=== PATIENT | female | born 1930 | race Caucasian/White ===

== ENCOUNTER 2018-10-09 11:25 | Inpatient (IN) | payer OTHER, BC ==
[~2018-10-09] VITALS: Ht 157.5 cm; Wt 45.8 kg
[~2018-10-09 11:25] MED LIST: CEFUROXIME250 MG PO; PROLIA60 MG/1 ML SUBQ
[2018-10-10] MEDS ORDERED: LIPITOR40 MG PO (01:51)
[2018-10-10] MEDS ORDERED: NORVASC5 M1 PO (02:18)
[2018-10-10] MEDS ORDERED: LISINOPRIL40 MG PO (02:19)
[2018-10-10] MEDS ORDERED: ASPIR 8181 MG PO (02:20)
[2018-10-10] MEDS ORDERED: ARMOUR THYROID60 M1 PO (02:25)
[2018-10-10] MEDS ORDERED: VITAMINC500 PO (02:26)
[2018-10-10] MEDS ORDERED: CALCIUM 600 +1 EAC1 PO (02:27)
[2018-10-10] MEDS ORDERED: UNICOMPLEX M TA1 TA1 PO (02:29)
[2018-10-10] MEDS ORDERED: ARAVA20 MG PO (02:30)
[2018-10-10] MEDS ORDERED: MIRALAX17 GM PO (02:31)
[2018-10-10] MEDS ORDERED: INFLECTRA100 MG IV (02:40)
--- NOTE | 2018-10-10 04:50 | NUR ---
ARRIVED FROM [facility]IA [facility] IN [facility] VIA TRANSPORT X2 STAND BY ASSIST AMBULATING WITH WALKER @ 0005 ON 10/10/18. CONTACTED DPOA SON LILLIAN FERNANDES BY PHONE FOR AUTHORIZATION TO TREAT, PRIOR EXPRESS CONSENT FORM, RIGHTS AND RESPONSIBILITIES FORM, COUNTERSIGNED BY Dulce LEO RN AND José BRADLEY RN. ALERT, ORIENTED TO SELF ONLY ONLY. FAIRLY PLEASANT AFFECT. WAS AGITATED AND COMBATITIVE AT ER, SCREAMED OUT. DIET IS REGULAR. THIN LIQUIDS. ATE DINNER AT THE ER AND FED SELF. CONTINENT BUT WEARS A BRIEF AND HAS OCCASIONAL ACCIDENTS. NO IV LINES. SKIN ASSESSMENT: L EAR HAS A SCAB ON THE POSTERIOR SIDE, L FOREARM HAS A BRUISE, L KNEE SCABS, L KNEE MEDIA BRUISE, R UPPER LEG HAS SCRATCHES, THICK DISCOLORED TOENAILS. REPORTS BM LAST NIGHT. HAS A SMEAR OF YELLOW BROWN STOOL IN THE CLEFT OF HER BUTTOCKS. WEARS MEDIUM BRIEFS. HRRR S1 S2 NOTED. ABD NORMOACTIVE X 4 Q. R MASTECTOMY NOTED, LIMB ALERT RIGHT ARM. SLEPT A FEW HOURS THEN GETS OUT OF BED STRAIGHTENING UP THE SHEETS AND BLANKETS REPEATEDLY. @ 05:15 RESPONDED TO SOUND IN ROOM, PT WAS ON KNEES WITH HER WALKER IN FRONT OF HER. DENIES PAIN, PONCE [id number]. NO INJURIES OBSERVED OR REPORTED. VS 168/98 114 20 96.
[2018-10-10 05:14] VITALS: BP 150/82
[2018-10-10] MEDS ORDERED: ATIVAN0.5 MG PO (05:32)
[2018-10-10 06:14] VITALS: BP 157/93; BP 168/98
--- NOTE | 2018-10-10 07:30 | NUR ---
PT VERY HARD OF HEARING. PT UP WITH WALKER. PT HAS REMOVAL FRONT TEETH THAT SHE HAS ISSUES WITH PLACING IN MOUTH. PT GAIT IS GUARDED. PT STATED SHE WAS HUNGRY THIS AM. PT LUNGS CLEAR AND DIMINISHED AT BASES. PT FORGETFUL.
[2018-10-10 08:00] VITALS: BP 157/95
--- NOTE | 2018-10-10 09:33 | NUR ---
Anay was witnessed falling asleep in group, losing outside energy sales representatives of a styrofoam cup that held part of her dentures. The patient became flustered looking for her teeth, but found them with assist from staff. BELT MEASURER assisted Anay back to her room to put her teeth in her "box." Anay allowed BELT MEASURER and PARADICHLOROBENZENE MACHINE OPERATOR to assist her with this, but insisted that the box remain in her room upon encouragement to have the box locked up at nurses station for safe keeping.
--- NOTE | 2018-10-10 12:00 | NUR ---
PT UP WANTING TO GET TEETH. THIS NURSE STATED THAT SHE WILL GET HER TEETH FOR HER, SHE STATED NO I WILL GET IT, YOUR BUSY AND SWATTED AT NURSE STOMACH. FOLLOWED PT TO ROOM AND ASSISTED HER WITH PLACING HER TEETH.
--- NOTE | 2018-10-10 14:16 | NUR ---
PT GETS UP WITHOUT ASKING FOR ASSISTANCE. PT IS FALL RISK DUE TO IMPULSIVE BEHAVIOR.
--- NOTE | 2018-10-10 14:50 | NUR ---
PT RESTING IN GROUP PICKING AT AIR, AND NOT ENGAGED WITH GROUP SHE WAS STARING OFF IN SPACE.
--- NOTE | 2018-10-10 17:53 | NUR ---
PT UP IN ROOM AND MAKING BED. PT GETS DETERMINED TO DO SOMETHING AND IS HARD TO REDIRECT. PT DID HAVE A SMALL NAP TODAY IN THE AFTERNOON.
[2018-10-10 19:30] VITALS: BP 126/83
--- NOTE | 2018-10-10 22:18 | NUR ---
PT SITTING IN DAY ROOM UPON ARRIVAL TO SHIFT. PT ASKED NURSE TO PUT PEER TO BED SINCE SHE WAS SLEEPING. PT HAS FLAT AFFECT BUT GOOD EYE CONTACT. PT NEEDED TO REDIRECTED TO WALK WITH WALKER 4 TIMES. PT COMPLIANT WITH MEDICATIONS AND LOVENOX. PT RESISTIVE TO LAYING DOWN BECAUSE SHE STATED THE ROOM WAS FOR THE NURSE AND SHE HAD A DIFFERENT ROOM. PT WALKED IN [place], FOUND HER NAME ON DOOR AND THEN RETURNED TO HER ROOM. PT DID ASK/PUSH NURSE OUT OF ROOM AND CLOSED DOOR FROM THE INSIDE. ANOTHER STAFF MEMEBER WENT INTO ROOM AND ASSISTED PT TO BED, ALARM ON. PT AWAKENED X 1 TO USE RESTROOM AND WAS INCONTINENT ON THE WAY, ASSISTED WITH ADLS, NO RESISTANCE. PT WAS APOLOGIZING FOR URINATING ON FLOOR.
[2018-10-11 09:10] VITALS: BP 179/88
[2018-10-11 09:25] VITALS: BP 126/83
--- NOTE | 2018-10-11 11:02 | NUR ---
0700: Report rec from noc shift, care assumed. 729: This nurse assisted pt to BR, pt ambulatory with walker, gait weak, slow and occasional unsteady. Voided in toilet, brief dry. 0800: Ambulatory with walker and stand by assist, gait steady when walking, uses walker approp.. Feeds self with set-up assist, appetite good, consumed 75% of meal, takes regular fluids w/o difficulty. Takes meds whole w/o difficulty, pt worried about care of other pts, voices recommendations for the care, confusion noted "President Catie is coming to visit." Oriented to name only. No participation in 0900 therapy group.
[2018-10-11 19:43] VITALS: BP 126/67
[2018-10-12 08:00] VITALS: BP 155/91
--- NOTE | 2018-10-12 10:25 | NUR ---
ASSUMED PATIENT CARE AT 0700. PATIENT ASSISTED UP TIMES ONE WITHOUT INCIDENT. FLAT AFFECT, BLUNT FACIAL EXPRESSION. NO BEHAVIORS TO DATE THIS SHIFT. COMPLIANT WITH MEDICATIONS, TOOK WHOLE WITH WATER. CONTINUE TO MONITOR.
--- NOTE | 2018-10-12 12:50 | NUR ---
TOSHIA attempted to open up a Sw psycho social and none was available on the list in EHR. Pt has been living in the home with a 24 hr neonatal intensive care unit nurse, and her now lives in [facility] in memory care for the last 2.5 months. Son Mohamud [phone] would like her to move there at d/c. Pt is from [facility], and had 1 sibling. 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 This family would like a family meeting on Sunday. Sw encouarged him to call weekday SW to set this up. Toshia passed this inofrmation on to weekday SW.
[2018-10-12 14:29] VITALS: BP 1455/91; BP 155/91
--- NOTE | 2018-10-12 22:03 | NUR ---
NURSES NOTE - ASSUMED CARE OF PATIET AT APPROXIMATELY 1900. DURING INTIAL MEET AND GREET WITH PATIENT SHE APPEARS WITH A FLAT AFFECT, DISORGANIZED SPEECH WITH A FLIGHT OF IDEAS. SHE STATES ITEAMS THAT ARE UNCLEAR AND APPEARS TO BE CONFUSED ON SUBJECT MATTER. SHE IS DEMONSTRATING BX THAT IS APPROPRIATE AND IS FOLLOWING COMMANDS. SHE IS ALERT AND ORIENTED X1-2. SHE AMBULATES WITH WALKER BUT DOES NEED STAFF SUPPORT TO ENSURE SAFETY. SHE DENIED SI HI AND HALLUCINATIONS BUT THIS NURSE IS UNCLEAR IF THIS IS AN ADEQUATE ASSESSMENT DUE TO PATIENT BEING A POOR HISTORIAN. SHE DID NOT REPORT MEDICAL CONCERNS, SHE WAS MED COMPLIANT. NURSING WILL MAINTAIN ALL PRECAUTIONS TO ENSURE SAFETY AT ALL TIMES.
--- NOTE | 2018-10-13 06:20 | NUR ---
JAIME SLEPT 8.2 HOURS
[2018-10-13 07:00] VITALS: BP 178/94
--- NOTE | 2018-10-13 11:24 | NUR ---
ASSUMED CARE OF PT. @0700 - PT ATE BREAKFAST IN DAYROOM. AFFECT FLAT, APPEARS DEPRESSED. AM CARE COMPLETED W/ASSIST OF ONE & WALKER PT SHOWERED. NO COMPLAINTS VOICED. NO SI/HI VOICED. COMPLIANT W/MEDS. PT ASKED WHY SHE HAS TO STAY HERE. REORIENTED TO SURROUNDINGS. NO ACUTE DISTRESS NOTED. CONTINUE TO MONITOR THROUGHOUT SHIFT.
--- NOTE | 2018-10-13 15:14 | NUR ---
Per son request sent referral to [facility] [phone] ([phone].
--- NOTE | 2018-10-13 19:54 | NUR ---
PT W/INCREASE IN AGITATION AND ANXIETY DURING VISITING HOURS. ATTEMPTED TO REMOVE PT FROM DAYROOM TO DECREASE STIMULI. PT GRABBING AND PINCHING AT STAFF, RAISING WALKER AT STAFF. VERBALLY AGITATED - "YOU LEAVE ME ALONE, GET AWAY FROM ME." ATTEMPTS TO VERBALLY REDIRECT PT WERE NOT SUCCESSFUL. STRAIGHTENING PRESS OPERATOR HELPER - ALEXANDREA WAS NOTIFIED AND ORDER RECEIVED FOR STAT PRN TO ASSIST WITH AGITATION. PT WAS COMPLIANT WITH PRN IM. ATE SUPPER IN DAYROOM. PT WAS NOTICED PUTTING ROSA CRACKERS IN HER SHIRT AND HIDING SUGAR PACKETS IN HER SHOES. WHEN QUESTIONED TO WHY SHE WAS DOING THAT PT RESPONDED -" I DON'T KNOW IF YOU PEOPLE ARE EVER GOING TO FEED ME AGAIN SO I HAVE TO." PT FOLDING UP PAPER AND HIDING IT IN SHOES/POCKETS. PT CONTINUED W/INCREASE AGITATION AND NOT RESPONDING TO PRN IM AND VERBAL REDIRECTION. PT UNSTEADY ON FEET AND PICKING AT WALKER AND LEANING DOWN ON FLOOR. LAP DAIJA PLACED ON PT AT CHANGE OF SHIFT TO ENSURE HER SAFETY AND FALL PREVENTION. CONTINUE TO MONITOR.
[2018-10-13 20:00] VITALS: BP 91/62
[2018-10-14 00:35] VITALS: BP 91/62
--- NOTE | 2018-10-14 01:44 | NUR ---
ASSUMED CARE @ 1900 10/13/18, SITING IN W/C IN DAYROOM. NOTED TO HAVE CONFUSION, ORIENTED TO SELF ONLY. COOPERATED WIHT ASSESSMENT, VSS. LAID DOWN @ 2200, RESTLESS AND UNCOOPERATIVE. NOTED TO BE ASLEEP @ 2250. BED IN LOW POSITION WITH BED ALARM SET, WILL CONTINUE TO MONITOR Q 12 MINUTES FOR PT SAFETY.
--- NOTE | 2018-10-14 05:13 | NUR ---
SLEEPING WELL, EYES CLOSED, RESPIRATIONS EVEN AND UNLABORED. WILL CONTINUE TO MONITOR, BED IN LOW POSITION BED ALARM SET. WILL CONTINUE TO MONITOR.
--- NOTE | 2018-10-14 05:58 | NUR ---
SLEPT 6.4 HOURS TOTAL.
[2018-10-14 07:56] VITALS: BP 145/73
[2018-10-14 18:32] VITALS: BP 145/73
--- NOTE | 2018-10-14 18:41 | NUR ---
ASSUMED CARE AT 0700 THIS MORNING. SHE HAS BEEN SOMULENT THIS MORNING. SHE ONLY WOKE UP TO EAT. SON VISITED AND ATTEMPTED TO WAKE HER UP BUT WHE WOULD NOT WAKE UP. SPENT THE MORNING IN BED AND PART OF AFTERNOON. SINCE SHE WAS ASLEEP SHE HAS NOT SHOWN S/S SI/HI OR AVH.
[2018-10-14 20:13] VITALS: BP 116/93
[2018-10-14 23:30] VITALS: BP 116/93
--- NOTE | 2018-10-15 01:55 | NUR ---
ASSUMED CARE @1900 ON 10/14/18, UP IN W/C, USES W/C OR WALKER. A&OX1, CAN REPORT NAME, BUT NOT DATE, PRESIDENT OR REASON FOR HOSPITALIZATION. REPORTS SHE IS IN THE HOSPITAL TO HELP WITH A PROGRAM TO DISTURB DRUG AND ALCOHOL USE AMOUNG YOUNG PEOPLE. HRRR, LUNGS CTA, ABD SOUNDS NORMO X 4 Q . TAKES MEDS CRUSHED IN PUDDING. DID TAKE ALL OF MEDS, BUT WITH SOME CONVINCING NECESSARY. WILL CONTINUE TO MONITOR Q 12 MINUTES FOR PATIENT SAFETY.
--- NOTE | 2018-10-15 06:08 | NUR ---
SLEPT 9 HOURS.
[2018-10-15 12:07] VITALS: BP 149/86
--- NOTE | 2018-10-15 12:34 | NUR ---
ASSUMED CARE AT 0700 THIS MORNING. SHE WAS AWAKE MORE ON THE UNIT THAN SHE WAS YESTERDAY. SHE WAS ON THE UNIT FOR BREAKFAST, TOOK HER MEDS WITHOUT PROBLEMS THIS MORNING. TWO WOMEN VISITED HER TODAY. SHE WAS AWAKE AND ALERT WHILE THEY WERE HERE. SHE WAS ON THE UNIT FOR MORNING MEETINGS BUT DID NOT REALLY PARTICIPATE BUT WANDERED AWAY. SHE TOOK HER MEDS WITHOUT PROBLEMS NOTED. ATE MEALS ON THE UNIT.
--- NOTE | 2018-10-15 16:54 | NUR ---
SW schedule a family meeting on October 16, 2018. SW will follow-up with family on tomorrow.
[2018-10-15 21:15] VITALS: BP 110/82
--- NOTE | 2018-10-16 06:15 | NUR ---
PATIENT SLEPT 8.8 HOURS.
[2018-10-16 08:00] VITALS: BP 164/98
--- NOTE | 2018-10-16 09:34 | H ---
[facility] [place] [address] HISTORY AND PHYSICAL Name: JAIME FERNANDES Room #: 521B-B ADM IN M.R.#: [id number] Admission: 10/10/18 ������������������ Attend Phys: Cj Donato DO Discharge: ������������������ Date of : 31 Report #: [id number] THIS REPORT FOR: //name// CC: Cj TINAJERO Physician staff DATE OF SERVICE: 10/10/2018 ATTENDING PHYSICIAN: Cj Donato DO. SLACKLINE OPERATOR: Sridevi Vega MD. REASON FOR ADMISSION: The patient was sent from [facility] for having paranoid thoughts, agitation and difficulty managing the patient at nursing facility. HISTORY OF PRESENT ILLNESS: This is an 88-year-old female who is a poor historian and we have limited information on, the patient was seen in the Emergency Room at [facility] in [place] yesterday 10/09/2018 and accepted there as a direct admission. Her DPOA is Mohamud Fernandes, her son at [phone]. I have left him a voicemail. I have not heard back from him yet. Apparently, the patient was sent to the ER for the above-stated concerns. She was sent over from Dr. Tinajero's office because of concerns about paranoia and abnormal behavior. She has been talking about people coming to get her. She evidently was running around with a gun threatening to shoot people a few days ago. On examination in the ER, she was confused, does not understand why she is here. No abnormalities were found on the x-ray. She is taking care of in a private residence by caretakers. They noticed shortness of breath, confusion, unsteadiness and change in gait. They noticed over the past week, she has been more imbalanced, has had deviating gaits, several falls without injury. She uses a walker or cane most of the time. The patient reported in the ER, she has felt more confused than normal in the past week. The patient also reports shortness of breath due to extreme heat, but no cough, fever, chills, chest pain, sputum or postnasal drip. The patient states that she quit smoking last week. CT of the chest in the ER showed no PE or pneumonia, but she does have moderate emphysema and pulmonary artery hypertension. CT of the head showed generalized cortical atrophy and right cerebral hemisphere infarct. The patient was recently on 09/23 in the ER for fall and CT head was negative for acute infarct. PAST MEDICAL HISTORY: COPD, hypothyroidism, breast cancer, rheumatoid arthritis, osteoporosis. PAST SURGICAL HISTORY: Include bilateral knee replacement, right mastectomy, hernia repair, cataract surgery, tonsillectomy, left cataract, ORIF of the right [facility] [address] [place] [address] HISTORY AND PHYSICAL Name: JAIME FERNANDES Room #: 521B-B ADM IN M.R.#: [id number] Admission: 10/10/18 ������������������ Attend Phys: Cj Donato DO Discharge: ������������������ Date of : 31 Report #: [id number] femur, pneumonia, history of West Nile virus. HOME MEDICATIONS: Polyethylene glycol; leflunomide, which is Arava 20 mg p.o. daily; multivitamin, calcium carbonate with vitamin D3 p.o. b.i.d., ascorbic acid 1 tab p.o. daily, [place] Thyroid 60 mg p.o. at 0700 hours, infliximab 200 mg IV every 8 weeks, denosumab 60 mg subcutaneous p.r.n. joint pain; hydrocodone/ibuprofen, which is Vicoprofen 1 tab p.o. q.4 p.r.n. SOCIAL HISTORY: Lives at home with 23/10 care. has dementia and is in a detention. Alcohol denies; recreational drugs, denies. Quit last week smoking. REVIEW OF SYSTEMS: From the Emergency Room, CONSTITUTIONAL: Endorses fatigue. Denied fever. HEENT: Denies visual disturbance, headache. CARDIOVASCULAR: Denies chest pain, chest pressure, chest discomfort, palpitations, dizziness or lightheadedness. VASCULAR: Denies leg pain with walking or leg discoloration. RESPIRATORY: Denies cough, wheezing or increased sputum. GASTROINTESTINAL: Denies indigestion, nausea, bleeding, constipation or diarrhea. GENITOURINARY: Denies pain, blood in urine, difficulty with urination. MUSCULOSKELETAL: Denies joint pain, muscle pain or weakness. SKIN: Denies discoloration or rash. NEUROLOGIC: Denies dizziness, left-sided numbness. ALLERGIES: No known allergies. Otherwise, negative on 10-point review. PHYSICAL EXAMINATION: EXTREMITIES: She had 1+ edema bilateral lower extremity, 2+ dorsalis pedis pulses bilaterally. Her physical exam otherwise was grossly normal. LABORATORY DATA: From the Emergency Room include from 10/08/2018, sodium 139, potassium 5.0, chloride 104, bicarbonate 28, BUN 33, creatinine 0.55, estimated GFR non- 105, glucose 123, calcium 9.1, calcium adjusted for albumin 9.1, total bilirubin 0.7, AST 65, ALT 48, alkaline phosphatase 103. CRP 1.9. Serum total protein 7.4, albumin 4.0. Hematology: White count 5.9, H and H 12.5 and 38.7, platelet count 102. I thought there was a urinalysis done, but I am not seen it, so we will have to do a little more searching for that. MENTAL STATUS EXAMINATION: A well-developed, well-nourished female appearing at least stated age. Attention limited. Concentration limited. She is only oriented to month, not year, not the day of the week. The patient could tell me her DPOA was name Mohamud. Speech, normal rate. She is disheveled. Concentration limited. Thought process, linear and limited. Thought content, focused on current questions. No psychomotor agitation or retardation, when I [facility] [address] [place] [address] HISTORY AND PHYSICAL Name: JAIME FERNANDES Room #: 521B-B ADM IN M.R.#: [id number] Admission: 10/10/18 ������������������ Attend Phys: Cj Donato DO Discharge: ������������������ Date of : 31 Report #: [id number] interviewed her. Memory impaired. Insight impaired. Judgment impaired. Fund of knowledge below average. FORMULATION: This is an 88-year-old female who is a poor historian and we have limited history on with alleged paranoid thoughts. The patient has had recent ER visits for hypertensive urgency, right cerebral stroke, UTI and COPD. We will evaluate, stabilize, and obtained collateral. Voicemail left for her DPOA. ESTIMATED LENGTH OF STAY: 7-14 days. STRENGTHS: She is insured, she has family. WEAKNESSES: Advancing age, known neurocognitive disorder. I also found some additional laboratories, UDS was negative except for opiates, which was expected. Urine showed 1+ protein, otherwise negative. Also some additional anecdote, the patient wandering near the hallway, becoming aggressive, refusing to listen to staff, offered warm blankets, told all to go to hell. The patient was refusing to take medication in the ER. She has attempted to walk in other patient's rooms, difficulty redirecting. Plan: At this time with regards to her medications in the hospital, I discontinued the IV biologic that was ordered. It looks like it is for her rheumatoid arthritis, but this can be non-formulary here. She got one time Ativan last night. I do not expect to repeat that. She continue vitamin C 500 mg p.o. daily, continue aspirin 81 mg p.o. daily, continue atorvastatin 40 mg p.o. at bedtime, continue calcium carbonate with vitamin D, continue lisinopril 40 mg p.o. daily, hold for blood pressure of systolic less than 100, and continue multivitamin, continue Norvasc, again hold for BP less than 100. I plan to start the patient on scheduled haloperidol. I would like to get in touch with her DPOA to discuss the need for further treatment such as a new mood stabilizer. ELOS 10-14 days Time spent on interview, review of records and coordination of care is approximately 45 minutes. ��������������������������������������������� <ELECTRONICALLY SIGNED> ���������������������������������������� By: Cj Donato DO ��������������������������������������������� 10/16/18 0934 [id number] Cj Donato DO /nt
--- NOTE | 2018-10-16 11:44 | NUR ---
assumed pt care report received from nurse. pt is aox2. restless. up in wheelchair. consumed 100% on her breakfast. assisted with urination. pt o2 saturation is 84% this am during breaksfast. pt color is pink, no soa. dr sanchez made aware of the low o2 saturation. chest xray ordered. breathing treatment ordered as well. o2 saturation was rechecked before chest xray and breathing treatment. o2 saturation is 95% at time of recheck,
[2018-10-16 19:33] VITALS: BP 120/93
[2018-10-16 22:00] VITALS: BP 120/93
--- NOTE | 2018-10-17 00:48 | NUR ---
PATIENT DID RESPIRATORY TREATMENT AT 1930 TONIGHT. LUNGS CLEAR SOUND AFTERWARD. CXR DONE TODAY NEGATIVE. PATIENT'S VSS. NO FEVER. PATIENT TO BED AT 2100 TONIGHT AND SLEEPING SOUND. AGAIN TONIGHT, SHE WAS CALLING FOR HER CINDI AFTER SHE WAS PUT TO BED. REASSURED HER THAT CINDI WAS BEING TAKEN CARE OF AND SHE WENT TO SLEEP. DENIES PAIN ON ASSESSMENT. CONTINUES TO BE AGITATED EASILY AND IRRITABLE WHEN TRYING TO DO ADL'S WITH HER. MUST GO SLOW AND EXPLAIN WHAT IS BEING DONE. PATIENT STILL WANTS TO STAND UP AND RE-DO BED SHEETS OR FIDDLE WITH CLOTHES OR BELONGINGS IN THE MIDDLE OF TRYING TO GET HER DRESSED OR TO WORK WITH HELPING HER WITH OTHER ADL'S. SHE IS NOT EASILY REDIRECTED AT TIMES. TONITE SHE IS MORE CALM AND SLEEPY THAN USUAL. PATIENT SLEEPING AT THIS TIME. BED ALARM ON AND BED IN LOW POSITION. CONTINUING OUR 12 MINUTE ROUNDING AND PRN.
--- NOTE | 2018-10-17 05:54 | NUR ---
Pt found sitting on floor wrapped in sheets, sitting by w/c. Bed alarm was sounding. Farm Demonstrator notified, RADIO STATION MANAGER notified, attempted to notify but he does not have vmail set up. Will pass on for day shift to contact.
--- NOTE | 2018-10-17 06:39 | NUR ---
PATIENT FELL AROUND 6 AM TODAY. HER VSS AT THIS TIME WERE 93% 84P T96.9 16R 164/85. PATIENT WITHOUT INJURY AND STATES SHE IS HUNGRY. PUDDING AND OJ GIVEN TO PATIENT AND SHE IS BACK TO SLEEP. CONTINUING TO MONITOR.
--- NOTE | 2018-10-17 07:21 | NUR ---
ONE HOUR VSS POST FALL ARE 142/88 P81 R16 T97.0 AND 02 SAT 96%. PATIENT SITTING UP IN WC IN DINING ROOM. STATES THAT HER RIGHT SHOULDER AND THUMB ACHE. LET HER DAY NURSE KNOW SO CAN KEEP ASSESSING. PATIENT AWAITING BREAKFAST. PATIENT HAD 8.0 HOURS OF SLEEP LAST PM.
--- NOTE | 2018-10-17 11:54 | NUR ---
PATIENT'S FAMILY MEMBER HAD CONCERN ABOUT STATEMENTS/COMPLAIN PATIENT MADE REGARDING WOODWORKING MACHINE FEEDER. NURSE MARINE PIPEFITTER NOTIFIED, AND MARINE PIPEFITTER PROMISED TO TALK THE PATIENT AND FAMILY.
--- NOTE | 2018-10-17 17:07 | NUR ---
Toshia met with pt's ELLE and nurse to discuss D/C plans. Family would like her to D/C to [facility] tomorrow but after talking to [facility] admissions they do not have a bed available and ant to see this pt without a restraint for 48 hours. They would be out again on Sunday to re eval. Toshia also suggested that family offer to pay for 24/7 PD, this will assist with any behaviors and her fall risk. FRANCISCO seemed to agree with this. Toshia called and reported thsi to family nad nursing. Toshia also sent updates to the accurate fax number for .
[2018-10-17 20:02] VITALS: BP 137/42
--- NOTE | 2018-10-18 00:57 | NUR ---
NURSES NOTE - JAIME IS ALERT AND ORIENTED X1-2 AT TIMES. DURING INTIAL GREETING SHE APPEARS WITH A PERPLEXED AFFECT, AND WAS USING A WALKER TO AMBULATE. SHE DID NEED FREQUENT REDIRECTION TO NOT SIT ON THE WALKER TO ENSURE NO FALLS. DURING ASSESSMENT SHE WOULD CHANGE ANSWERS TO OFF TOPIC CONVERSATIONS AND QUESTIONS THAT MADE NO LOGIC TO THIS RN. SHE DID NOT REPORT SI HI OR ANY HALLUCINATIONS TO THIS NURSE. SHE DOES NOT APPEAR TO BE RESPONDING TO ANY INTERNAL STIMULI AT THIS TIME. BUT WILL CONTINUE TO MONITOR. SHE DID NOT REPORT AND MEDICAL CONCERNS AND DOES NOT APPEAR TO BE IN DISTRESS. NURSING WILL MAINTAIN ALL SAFETY PRECAUTIONS TO ENSURE SAFETY AT ALL TIMES.
[2018-10-18 07:00] VITALS: BP 150/82
[2018-10-18 09:24] VITALS: BP 137/42
--- NOTE | 2018-10-18 10:39 | NUR ---
Pt seen for LOS on [facility] unit. Admitted w/ increased confusion, agitation/paranoia/aggression. PMH: COPD, HTN, hypothyroidism, osteoporosis, hx breast cancer. Spoke with multiple nurses on unit as pt reported to be very confused and unable to provide logical rational answers to questions. RN caring for this pt reports high po intake, eating 100% breakfast and 2 cups coffee. Per meal records, pt averaging 82% over the last 7 days (ate 100% x 3 meals just yesterday). Continues to receive Ensure Enlive daily at dinner. D/t pt's lower wt status (103.5# on admit), will continue daily supplement for extra calorie provision to help support wt maintenance/gain. She is receiving a MVI w/ minerals, calcium w/ vitamin D BID, and vitamin C supplements. No reported wt loss in chart TAX STAFF ACCOUNTANT. Remains on a mechanically altered/chopped diet, tolerating well per nursing. Consider a low nutrition risk d/t consistent adequate po intake.
--- NOTE | 2018-10-18 17:38 | NUR ---
ASSUMED CARE AT 0700 THIS MORNING. PT. UP FOR MEALS. TOOK MEDS CRUSHED IN FOOD WITHOUT MUCH DIFFICULTY. WENT TO GROUPS. SHE CONTINUES TO BE CONFUSED, ORITENT TIMES 1 ONLY. NOT USING LAP DAIJA TODAY. SHE WAS ATTEMPTING TO GET UP A FEW TIMES BUT WAS REDIRECTABLE. NO S/S SI/HI NOTED AND NOT S/S AVH NOTED EITHER.
[2018-10-18 19:36] VITALS: BP 121/69
--- NOTE | 2018-10-18 23:18 | NUR ---
ASSUMED CARE OF THE PT AT 1914 PM. ALERT ET ORIENTED, ET CONFUSED AT TIMES. MAKES NEEDS KNOWN. HEART RATE REGULAR. LUNGS CLEAR BILATERALLY, RESP., EVEN AND UNLABORED. +BS HEARD IN ALL 4 QUADRANTS. ABD SOFT ET NON TENDOR. THE PT WAS IN BED WHEN THIS PHYSICIAN PRACTICE MARKET MANAGER FIRST CAME ON DUTY. SHE TOOK HER HS MEDICATIONS CRUSHED IN APPLESAUCE. REMAINS ON 12 MINUTE CHECKS FOR HER SAFETY.
--- NOTE | 2018-10-19 18:35 | NUR ---
AAOX1 VERY CONFUSED. POOR APPETITE. IN DINNING ROOM MOST OF DAY AND PARTICIPATED IN GROUPS.
--- NOTE | 2018-10-20 06:35 | NUR ---
PATIENT SLEPT 8 HOURS PER LAND RESOURCE SPECIALIST
[2018-10-20 07:00] VITALS: BP 114/62
[2018-10-20 09:45] VITALS: BP 155/93
[2018-10-20 10:12] VITALS: BP 155/93
--- NOTE | 2018-10-20 12:49 | NUR ---
0700: Report rec from noc shift, care assumed. 0745: Assisted to w/c with staff x1, to DR via w/c, mobility per staff. Feeds self with set-up assist, appetite good, takes meds crushed in pudding w/o difficulty. Oriented to name only, follows simple instructions, cooperative with staff, and visits with other pts, 0900 attending therapy group with minimal participation noted. No agitation or anxiety observed.
--- NOTE | 2018-10-20 15:18 | NUR ---
MADISON sent updates to [facility] [phone]
[2018-10-20 19:41] VITALS: BP 117/78
--- NOTE | 2018-10-21 00:28 | NUR ---
PT SITTING IN WC IN DAY ROOM. TRANSFERRING FROM WC TO BED WITH ASSIST X1. AMBULATING TO BATHROOM WITH ASSIST X1. DENIES PAIN. RESTING COMFORTABLY. NO NEEDS VOICED. WILL CONTINUE TO PROVIDE FREQUENT OBSERVATION.
--- NOTE | 2018-10-21 10:49 | NUR ---
0700: Report rec from noc shift, care assumed. 0800: Assisted to w/c by 1 staff, cooperative with staff, wears brief while out of bed. To DR via w/c, feeds self, resists staff helping with opening juices. Appetite good, consumes 100% of meal and drinks fluids w/o problems, takes meds crushed in applesauce w/o difficulty. Compliant with medication, figety with parts of w/c and with clothing, pulls off no skid socks and pulls at own clothes. Unable to participate in group activity due to cognitive impairment.
--- NOTE | 2018-10-21 17:18 | NUR ---
MADISON spoke with Geovanni , , at [facility]. Geovanni informed they will accept Pt into their facility. Geovanni asked that we call sunday10/22/18 to setup transportation for discharge.
[2018-10-21 19:23] VITALS: BP 90/63
[2018-10-22 00:14] VITALS: BP 90/63
[2018-10-22 00:18] VITALS: BP 90/63
--- NOTE | 2018-10-22 03:31 | NUR ---
PT UP IN DAY AREA AT [facility]. ABLE TO TAKE HS MEDS WITH ENCOURAGEMENT. INCONTINENT X1 DURING THE NIGHT, OTHERWISE SLEPT WELL THROUGH THE NIGHT.
[2018-10-22 09:01] VITALS: BP 103/68
--- NOTE | 2018-10-22 11:16 | NUR ---
ASSUMED PATIENT CARE AT 0700 A.M. PATIENT IN BED AT THAT TIME, ASSISTED UP FOR BREAKFAST TIMWES ONE STAFF. ATE MOST OF BREAKFAST, PER SELF. TOOK MEDICATIONS IN [place]. FLAT AFFECT, CALM MODE, NO BEHAVIORS. CONTINUE TO MONITOR.
--- NOTE | 2018-10-22 16:25 | NUR ---
MADISON sent a referral to [facility]. MADISON will follow-up with Aminata to see if pt is accepted for admission.
[2018-10-22 19:47] VITALS: BP 113/66
--- NOTE | 2018-10-23 01:22 | NUR ---
NURSES NOTE - PATIENT IS ALERT AND ORIENTED X1-2 AT TIMES. SHE HAS BEEN OBSERVED IN THE DAY ROOM MINIMALLY INTERACTING WITH OTHERS. SHE APPEARS WITH A FLAT AFFECT AT TIMES AND ATTEMPTING TO GET OUT OF HER WC. SHE DOES GET AGGRESSIVE WITH STAFF WHEN INTERVENING IN ORDER TO KEEP PATIENT SAFE. IT WAS DIFFICULT TO ASSESS SI HI DEPRESSION ET ANXIETY, WHEN ASKED THIS NURSE JUST RECEIVED A PERPLEXED AFFECT. WILL CONTINUE TO MONITOR FOR CHANGES. SHE DID NOT REPORT MEDICAL CONCERNS AND DOES NOT APPEAR TO BE IN DISTRESS. NURSING WILL MAINTAIN ALL PRECAUTIONS TO ENSURE SAFETY AT ALL TIMES.
[2018-10-23] MEDS ORDERED: ENOXAPARIN40 MG/0.1 SUBQ (11:13)
[2018-10-23] MEDS ORDERED: AMLODIPINE BESY10 MG PO (11:14)
[2018-10-23] MEDS ORDERED: ACCUPRIL40 MG PO (11:14)
[2018-10-23] MEDS ORDERED: DEPAKOTE ER250 MG PO (11:15)
[2018-10-23] MEDS ORDERED: ASPIR 8181 MG PO (11:15)
[2018-10-23] MEDS ORDERED: ZYPREXA 5 MG TAB5 M1 PO (11:15)
[2018-10-23 11:19] VITALS: BP 124/73
[2018-10-23 11:24] VITALS: BP 124/73
--- NOTE | 2018-10-23 11:42 | NUR ---
Patient Name: JAIME FERNANDES Admission Date: 10/10/18 DISCHARGE PLAN: Pt will be d/c home with her daughter Nelida. Care Assessment: Pt was assessed by Dr. Donato, and diagnosed with Major Neurocognitive Disorder with Behavior Disturbance. Level II Assessment: None Transportation: Pt will be transported by her daughter Special Instructions/Notes: Pt will need a memory care setting. Pt was accepted in [facility]. DISCHARGE TO FACILITY: Facility: Phone: Fax: Address: Contact Name: Phone: PCP: ROHIT Psychiatrist: TERE Psychiatrist
[2018-10-23 12:12] VITALS: BP 124/73
--- NOTE | 2018-10-23 12:28 | NUR ---
assumed care this morning at 0700. PT. UP AND DRESSED AND ON THE UNIT. ATE BREAKFAST IN THE DINING ROOM. MEDS CRUSHED AND PLACED IN PUDDING. PT. TOOK THESES WITHOUT PROBLEMS. AMLODIPINE OUT IN PYXIS AND GIVEN WHEN THEY CAME UP FROM PHARMACY. DAUGHTERS HER TO TAKE THE PT. HOME. ALL PAPERS SIGNED. DR. RUBÉN MEDICATION ORDERS, CLOTHING, BELONGINGS SENT WITH THE PATIENT AND HER TWO DAUGHTERS TO HOME. THEY LEFT AT 1240.
--- NOTE | 2018-10-24 09:53 | D ---
[facility] [place] [address] DISCHARGE SUMMARY Name: JAIME FERNANDES Room #: 521B-B [facility] IN M.R.#: [id number] Admission: 10/10/18 ������������������ Attend Phys: Cj Donato DO Discharge: 10/23/18 ������������������ Date of : 32 Report #: [id number] THIS REPORT FOR: //name// CC: Cj TINAJERO Physician staff DATE OF SERVICE: 10/23/2018 ATTENDING: Cj Donato DO ACCESS CONTROL OFFICER AT THE TIME OF DISCHARGE: Tray Dickinson MD DISCHARGE DIAGNOSES: Major neurocognitive disorder likely due to Alzheimer disease with behavioral disturbance, improved. Medical comorbidities, status post right cerebral infarct and I should say I cannot exclude component of cerebrovascular disease in the etiology of dementia, recent hypoxemic respiratory failure, resolved; recent pneumonia, treated; COPD, hypothyroidism, history of breast cancer, rheumatoid arthritis, osteoporosis, hypertension, stabilized recent hypertensive urgency, hyperlipidemia, prior DVT, no anticoagulation due to recent falls, recurrent falls, pulmonary hypertension. The patient had a last minute change in discharge plans. She will be discharging to her [id number] home. The patient's family was planning on placing her in [facility] this Sunday, but at the last minute a second opportunity arose at the [facility], so the family will be making a decision in the next few days. A 24/ supervision assistance is recommended due to her dementia, very limited gait ability and medical conditions. DISCHARGE MEDICATIONS: Albuterol via nebulizer 2.5 mg q.4 hours p.r.n. for shortness of breath or wheezing, Lovenox 40 mg subQ at bedtime for DVT prophylaxis. This was done in the hospital and was put on the discharge meds as it was expected her to be going to a facility; however, I do not expect the patient's daughters to give her Lovenox injections. Amlodipine 10 mg p.o. daily, hold for BP less than 100; lisinopril 40 mg p.o. daily, hold for BP less than 100; aspirin 81 mg p.o. daily for cardioprotection, Depakote ER 750 mg p.o. at 2130 daily, olanzapine 5 mg p.o. at 0900 and 2130, [place] Thyroid 60 mg p.o. daily, ascorbic acid 500 mg p.o. daily for supplementation, calcium carbonate/vitamin D3 one tab p.o. b.i.d., multivitamin with iron and minerals 1 tab p.o. daily. The daughter requested the patient stay on a DMARD, leflunomide, which is Arava 20 mg p.o. daily, 30 days prescription was given and 17 grams p.o. daily reconstituting in 8 ounces of water of MiraLax. Also, the patient has been getting probably joint injections q.6 months and infliximab 100 mg IV q.8 week infusions. 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 The patient previously had been getting this treatment in [place], [place] where she will not be returning to. This admission, due to her dementia [facility] [address] [place] [address] DISCHARGE SUMMARY Name: JAIME FERNANDES Room #: 521B-B DIS IN Jackie.José.#: [id number] Admission: 10/10/18 ������������������ Attend Phys: Cj Donato, Discharge: 10/23/18 ������������������ Date of : 32 Report #: [id number] atorvastatin was discontinued. REASON FOR ADMISSION: Psychosis, self-care failure, transferred from [facility]. HOSPITAL COURSE: The patient was admitted to Geriatric Psychiatry Unit. The patient had relatively improved walking ability earlier in admission. This did decline in an absolute sense; however, the patient became much more organized, calmer, responsive to redirection, which the son chose for her to be managed in a different living environment. The day of discharge, she was not homicidal, suicidal, oriented to self, somewhat to situation, not to time. LABORATORY DATA: Done while in the hospital, TSH is 1.105 and a Depakote level was 64 on her current dose of 750 mg, was felt to be therapeutic. VITAL SIGNS: On day of discharge are as follows: Temperature 96, BP 124/73. The patient did have a couple of brief nights where she needed oxygen, but by the end of the admission, I had made her nebulizer p.r.n. MENTAL STATUS EXAMINATION: This is a well-developed, well-nourished, disheveled female, wearing glasses. Attention limited. Concentration limited. Speech is normal rate. Thought process is linear and goal directed. Thought content, unsure about what her living situation is going to be. No psychomotor agitation, no psychomotor retardation. Denied auditory, visual, or tactile hallucinations. Denied suicidal intent and plan. Some helplessness, some hopelessness. Denied homicidal intent or plan. Memory noted to be impaired. Insight limited. Judgment limited. Fund of knowledge below baseline. Prognosis for this patient is guarded given her age, multiple medical comorbidities and neurodegenerative disorder. ��������������������������������������������� <ELECTRONICALLY SIGNED> ���������������������������������������� By: Cj Donato DO ��������������������������������������������� 10/24/18 [id number] Cj Donato, /nt
== END 2018-10-23 12:41 | disposition home or self-care (01) | DRG 57 ==
LOC: SBH
PROVIDERS: ADMIT Psychiatry & Neurology Psychiatry
DX: G30.9 Alzheimer's disease, unspecified (principal); F29 Unspecified psychosis not due to a substance or known physiological condition; F02.80 Dementia in other diseases classified elsewhere, unspecified severity, without behavioral disturbance, psychotic disturbance, mood disturbance, and anxiety; E03.9 Hypothyroidism, unspecified; M06.9 Rheumatoid arthritis, unspecified; Z96.653 Presence of artificial knee joint, bilateral; M81.0 Age-related osteoporosis without current pathological fracture; I10 Essential (primary) hypertension; I27.20 Pulmonary hypertension, unspecified; R29.6 Repeated falls; J43.9 Emphysema, unspecified; Z85.3 Personal history of malignant neoplasm of breast; Z90.11 Acquired absence of right breast and nipple; Z98.42 Cataract extraction status, left eye; Z87.01 Personal history of pneumonia (recurrent); Z79.1 Long term (current) use of non-steroidal anti-inflammatories (NSAID); Z79.899 Other long term (current) drug therapy; Z86.718 Personal history of other venous thrombosis and embolism; Z91.81 History of falling
CPT/HCPCS: 10880